=== PATIENT | male | born 2000 | race African-American/Black ===

== ENCOUNTER 2024-10-30 06:31 | Emergency (ER) | payer OTHER ==
[~2024-10-30] VITALS: Ht 177.8 cm; Wt 101.5 kg
[2024-10-30 07:28] LABS: BASO % 0.2 % (0.0-1.0); EOS % 0.4 % (0.0-3.0); HEMATOCRIT 40.3 % (42.0-52.0); LYMPH # 1.3 10^3/uL (1.5-5.0); LYMPH % 12.2 % (24.0-44.0); MEAN CORPUSCULAR HGB CONC 32.3 g/dl (32.0-36.5); MEAN CORPUSCULAR VOLUME 83.6 fl (80.0-96.0); MONO # 1.6 10^3/uL (0.0-0.8); NEUTROPHILS # 7.4 10^3/uL (1.5-8.5); NEUTROPHILS % 71.9 % (36.0-66.0); PLATELET COUNT, AUTOMATED 265 10^3/uL (150-450); RED BLOOD COUNT 4.82 10^6/uL (4.30-6.10); WHITE BLOOD COUNT 10.3 10^3/uL (4.0-10.0)
[2024-10-30 08:01] LABS: ALBUMIN 3.3 G/DL (3.2-5.2); BILIRUBIN,DIRECT 0.2 MG/DL (<0.4); BILIRUBIN,TOTAL 0.6 MG/DL (0.3-1.2); TOTAL PROTEIN 7.1 G/DL (5.7-8.2)
[2024-10-30] MEDS: NS (Normal Saline) 0.9% 1,000 ML IV ONE (08:45)
[2024-10-30] MEDS: KETOROLAC 30 MG/ML 1ML VIAL IV ONE (08:46)
[2024-10-30] MEDS ORDERED: ISOVUE-370 76% 100ML VIAL As Ordered ONE (09:03)
[2024-10-30] MEDS: PIPERACILLIN/TAZOBACTAM SOD 3.375 GM in DEXTROSE 5% (D5W) ADV/MINI-BAG 50 ML IV ONE (09:58)
[2024-10-30 12:30] VITALS: BP 126/70; TEMP 98.9; O2SAT 99
== END 2024-10-30 12:58 | disposition short-term general hospital (02) ==
LOC: M ED 06:31 → EDBD 06:31 → M ED 12:58
DX: K35.33 Acute appendicitis with perforation, localized peritonitis, and gangrene, with abscess (principal); K40.20 Bilateral inguinal hernia, without obstruction or gangrene, not specified as recurrent
CPT/HCPCS: 74177; 80047; 80076; 83690; 85025; 96361; 96365; 96375; 99285; J1885; J2543; Q9967

== ENCOUNTER 2025-04-09 03:38 | Emergency (ER) | payer OTHER ==
[~2025-04-09] VITALS: Ht 177.8 cm; Wt 102.3 kg
[2025-04-09] MEDS ORDERED: MIRA3350 PO (06:32)
[2025-04-09] MEDS ORDERED: META0.52 PO (06:32)
[2025-04-09] MEDS: MAGNESIUM CITRATE 300 ML BTL PO ONE (06:35)
[2025-04-09] MEDS ORDERED: MAGNESIUM CITRATE 300 ML BTL As Ordered ONE (06:41)
[2025-04-09 06:45] VITALS: BP 142/87; TEMP 97.8; O2SAT 98
== END 2025-04-09 06:49 | disposition home or self-care (01) ==
LOC: M ED 03:38
DX: K59.00 Constipation, unspecified (principal); Z90.49 Acquired absence of other specified parts of digestive tract; Z79.899 Other long term (current) drug therapy